=== PATIENT | female | born 1990 | race Caucasian/White ===

== ENCOUNTER 2023-11-15 11:11 | Emergency (ER) | payer OTHER, SELFPAY ==
[2023-11-15] VITALS (10 sets, daily range): BP systolic 92–127; BP diastolic 49–74; PULSE 56–77; RESP 12–19; TEMP 36.6–36.7; O2SAT 99–100
--- NOTE | ~2023-11-15 | XR_ITS ---
XR hip LT min 2V 11/15/2023 11:52 INDICATION: Left hip pain PROCEDURE: 2 views left hip COMPARISON: No prior studies for comparison. FINDINGS: Fracture, dislocation or subluxation is not identified. There is anatomic alignment. The so ft tissues appear within normal limits. No foreign bodies are identified. IMPRESSION: 1: NO ACUTE BONE OR JOINT ABNORMALITY IDENTIFIED. Reviewed, dictated and finalized at location B.
--- NOTE | 2023-11-15 11:26 | ED.NAVMDI ---
HPI - Nausea/Vomiting/Diarrhea General Chief complaint: Nausea/Vomiting/Diarrhea Stated complaint: n/v Time Seen by Provider: 11/15/23 11:14 History of Present Illness HPI Narrative: patient with history of anxiety and depression has been feeling anxious when she does she gets nausea and vomiting and cannot eat, for last day she has not had anything in starting last night she has been throwing up but cannot keep anything down. She does have some lower pelvic pain return left side with left hip pain, denies any recent injury. Related Data Allergies Allergy/AdvReac Type Severity Reaction Status Date / Time No Known Allergies Allergy Verified 11/15/23 11:21 Review of Systems Review of Systems: All systems reviewed & are unremarkable except as noted in HPI and below Exam Narrative: EXAMINATION OF ORGAN SYSTEMS/BODY AREAS: Constitutional: Vital signs per nursing GENERAL:[No acute distress, non-toxic appearing.] HEAD: Normal with no signs of head trauma. EYES: EOMI, conjunctiva normal ENT: Hearing grossly intact LUNGS: Nonlabored breathing. HEART: [Regular rate and rhythm] ABD: [Soft], [nontender to palpation] EXT: Normal range of motion SKIN: [No rashes or lesions.] NEURO: [Alert and oriented x 3. No gross focal sensory or strength deficits.] PSYCH: Normal affect Course Vital Signs Vital signs: Vital Signs Temperature 98.0 F 11/15/23 11:16 Pulse Rate 75 11/15/23 11:16 Respiratory Rate 17 11/15/23 11:16 Blood Pressure 127/74 11/15/23 11:16 Pulse Oximetry 100 11/15/23 11:16 Oxygen Delivery Room Air 11/15/23 11:16 Temperature 98.0 F 11/15/23 11:16 Pulse Rate 62 11/15/23 12:02 Respiratory Rate 16 11/15/23 12:02 Blood Pressure 92/49 L 11/15/23 12:01 Pulse Oximetry 99 11/15/23 12:02 Oxygen Delivery Room Air 11/15/23 11:16 MDM - Nausea/Vomiting/Diarrhea MDM Narrative Medical decision making narrative: Patient presenting with nausea and vomiting she has associates with her anxiety, her abdomen is soft nontender, he is ambulating normal steady gait, she is complaining of left hip pain slight did get an x-ray which is normal. Given the component of anxiety I did opt for Compazine and Benadryl for nausea, patient request IV fluids this is ordered. On re-evaluation she states she is feeling much better, urinalysis consistent with some dehydration but otherwise unremarkable, no longer nauseous, agreeable to outpatient management with return precautions. Lab Data Labs: Lab Results 11/15/23 Range/Units 11:58 Urine Color Yellow (Yellow) Urine Appearance Clear (Clear) Urine pH 5.5 (5.0-9.0) Ur Specific [place] 1.020 (1.001-1.035) Urine Protein Negative (Negative) mg/dL Urine Glucose (UA) Negative (Negative) mg/dL Urine Ketones 1+ H (Negative) mg/dL Ur Blood (Man) Negative (Negative) Urine Nitrate Negative (Negative) Urine Bilirubin Negative (Negative) Urine Urobilinogen 1.0 (<2.0) mg/dL Leukocyte Esterase Rfl Trace H (Negative) TINA/UL Urine RBC 0-2 (0-2) /hpf Urine WBC 6-10 H (0-3) /hpf Ur Squamous Epith Cells Occasional (Few) /hpf Urine Bacteria None seen /hpf Urine Casts 0-2 UCG Bedside Result Negative Reference Range: Negative Discharge Plan Discharge Clinical Impression: Nausea Patient Disposition: Home, Self-Care Condition: Stable Instructions: Antibiotic Form, Acute Nausea and Vomiting (ED) Additional Instructions: Please follow up with your doctor; you can always return for any further issues. If you don't have a primary care doctor, information is provided below. Prescriptions: New ibuprofen 600 mg tablet 600 mg PO TID PRN (Reason: fever or pain) Qty: 30 0RF ondansetron 4 mg tablet,disintegrating 4 mg PO Q8H PRN (Reason: nausea and vomiting) Qty: 10 0RF Follow-up/Referrals: Kusum Morales
[2023-11-15] MEDS: PROCHLORPERAZINE EDISYLATE 10 MG/2 ML VIAL IV PUSH (11:36)
[2023-11-15] MEDS: diphenhydrAMINE HCl INJ 50 MG/ML VIAL 25 MG IV PUSH (11:36)
[2023-11-15] MEDS: LACTATED RINGERS 1,000 ML 999 ML IV CONT (11:37)
[2023-11-15 12:09] LABS: Appearance Urine Clear (Clear); Bacteria Urine None Seen /hpf; Bilirubin Urine Negative (Negative); Blood Urine Negative (Negative); Color Urine Yellow (Yellow); Glucose Urine UA Negative (Negative); Ketones Urine 1+ mg/dL (Negative); Leukocyte Esterase Ur Trace LEU/UL (Negative); Nitrate Urine Negative (Negative); Non Pathogenic Casts 0-2; Protein Urine Negative (Negative); RBC Urine 0-2 /hpf (0-2); Squamous Epithelial Cell Urine Occasional /hpf (Few); pH Urine 5.5 (5.0-9.0)
[2023-11-15 12:28] LABS: Add Urine Microscopic? YES
== END 2023-11-15 13:13 | disposition home or self-care (01) ==
PROVIDERS: Emergency Provider Emergency Medicine
DX: R11.0 Nausea (principal); F41.9 Anxiety disorder, unspecified; F32.A Depression, unspecified; R82.998 Other abnormal findings in urine
CPT/HCPCS: 73502; 81001; 81025; 87086; 87088; 96361; 96374; 96375; 99284; J0780; J1200; J7120

== ENCOUNTER 2025-02-17 01:50 | Day surgery (SDC) | payer OTHER, SELFPAY ==
--- OUTSIDE RECORDS SUMMARY | 2012-05-27 06:00 | XMS_ITS | Continuity of Care Document ---
Author Organization [facility] Address [address] [place] [address] Phone Care Team Providers Care Vegetable Specker Name Role Phone Celia Harris NP Unavailable Unavailable Results Test Name Date and Time Measure Units Reference Range Abnormal Flag Status Comments Panel Description: STREPTOCOCCUS, GROUP A CULTUR E Final SOURCE: 07:21:00 THROAT Final STATUS: 07:21:00 FINAL Final RESULT: 07:21:00 SEE NOTE Final No beta hemoly tic Streptococci isolatedTest performed at [facility] [address] [id number] r: BARBIE WOOD DO P Advance Directives Directive Yes / No Effective Date File Name No Information Encounters Encounter Description Practice Location Reason(s) For Visit Diagnoses Date Provider Providers Copied on Encounter [facility], [address], [place], [place], [address] , tel: [phone] [facility] Acute tonsillitisTobacco use disorder 2 Steven Yang. [address], [place], [place], [id number]. tel:[phone] [facility], [address], [place], [place], [address] , [place] tel: [phone] [facility] Diffuse cystic mastopathyAcute lower urinary tract infectionAnnual physical exam 2 No Information [facility], [address], [place], [place], [address] , [place] tel: [phone] [facility] Routine gynecological examination Sep-0 1 Dario Harmon. [address], [address], [place], [place], [address], . tel:[phone] Family History Family Member Type Diagnosis Age At Onset Maternal grandmother Problem (finding) malignant neoplasm of urinary bladder Payers Payer name Insurance type Covered constitution party ID Giuseppe zacarias(audi) [id number] OPEN ACCESS I II III CI [id number] Social History Type Description Quantity Date Captured Comments Alcohol Use Details No Caffeine Use Details soda and tea Tobacco Use Status No Information Smoking Status Current every day smoker 2011 Sex Female Vital Signs Date / Time: Height Weight BMI Pulse Rate Blood Pressure Temperature Respiratory Rate Body Surface Area Head Circumference Head Circ. Percentile Wt./Donnie. Percentile BMI percentile Pulse Ox Inhaled Ox 10:52 AM 66.00 in 119.20 lbs 19.2 4 kg/m eter (2) 84 /min 110/58 mm[Hg] 99.00 F 16 /min Chief Complaint And Reason For Visit No Information Reason For Referral Reason For Referral No Information History Of Present Illness Encounter Date Complaint History Of Prese nt Illness No Information Functional Status Date Functional Assessmen t No Information Instructions Date Instruction Additional Infor mation No Information Assessments Type Assessment Date No Information Patient Care Teams Name Effective Dates (start - stop) Status Members No Information
[2025-02-07 18:34] VITALS: BMI 20.5
--- NOTE | 2025-02-07 18:48 | PC.NURSE ---
Report to the Outpatient Waiting Room, entrance under the green pavilion located off [facility], at time _0600_ on date __02/17/25_. Planned Procedure Time: __07_.? Time changes happen often and if your time is changed the preop area will call you the afternoon before. - You and your visitor will be asked to self-screen and do not enter if you have any COVID symptoms. Please call surgeon if you need to reschedule. - A mask is optional within the hospital at this time. Patients may have clear liquids (water, carbonated beverages, clear teas, apple juice) until 3 hours prior to surgery with a maximum of 20 ounces. - No food from midnight until time of surgery and no smoking, or chewing tobacco (or any form of nicotine). No chewing gum, candy or mints. Take only the following medications with a SIP of water on the morning of surgery: _lorazepam, fluoxetine__ DO NOT STOP ANY OF YOUR OTHER PRESCRIPTION MEDICATIONS PRIOR TO SURGERY EXCEPT THE FOLLOWING Hold all vitamins and supplements for 3 days per anesthesiologist. Please no make-up, nail cypriot, hairspray, perfume, deodorant, or body powder the day of surgery.? No jewelry (including any body piercings) or valuables the day of surgery, leave them at home.? Please take a shower or bath the night before, or the morning of, surgery with an antibacterial soap.? Wear comfortable, loose fitting clothing.? - Jewelry must be removed prior to entering the operating room.? Rings and piercings that are not removed may be cut off. - The hospital will not accept responsibility for valuables.? - Please leave all valuables, including medications, at home the day of surgery. If you are going home after surgery, a licensed solo truck driver must drive you home.? - NO public transportation without another adult if you receive anesthesia. - We recommend that an adult stay with you for 24 hours following discharge. - We also recommend that you do not drive, make important decision, drink alcoholic beverages, or take any drugs that were not prescribed by your health care provider for at least 24 hours after your discharge time. Follow any additional instructions given to you from your surgeon. Telephone instructions given to _Kennedy_and asked if any additional questions and then verbalized understanding. Patient advised to call surgeon office or pre surgery nurse liaison [phone] if any additional questions.
--- NOTE | 2025-02-15 12:49 | PM.IMHP ---
H&P: HPI History of Present Illness Date/Time: 02/15/25 12:49 Chief Complaint: Desires sterilization Narrative: 35-year-old female admitted for laparoscopic bilateral salpingectomy secondary to the desire for permanent sterilization alternatives including plus pills plan chills, injections large leuks etc. were reviewed. She understands this to be permanent and irreversible with risks and benefits reviewed in great detail. She had all questions answered asked to proceed Review of Systems Review of Systems: All systems reviewed & are unremarkable except as noted in HPI and below PMFSH Social History Social History Smoking packs per day: 0.5 Smoking cigarettes per day: 10.0 Years smoked: 15 Smoking pack-years: 7.50 Smoking status: Current every day smoker Tobacco type: cigarettes and e-cigarettes/vaping Substance use: never Substance use type: does not use Living arrangements: with family Spiritual care concerns: No Meds Home Medications and Allergies Home Medications ?Medication ?Instructions ?Recorded ?Confirmed ?Type ondansetron 4 mg disintegrating 4 mg PO Q8H PRN nausea and 11/15/23 02/07/25 Rx tablet vomiting #10 tabs fluoxetine 40 mg capsule 40 mg PO DAILY 02/07/25 02/07/25 History lorazepam 0.5 mg tablet 0.5 mg PO BID PRN anxiety 02/07/25 02/07/25 History nicotine 21 mg/24 hr daily 1 patch transdermal PRN PRN 02/07/25 02/07/25 History transdermal patch smoking cessation Allergies Allergy/AdvReac Type Severity Reaction Status Date / Time No Known Allergies Allergy Verified 02/07/25 18:30 Exam Const: General: cooperative, healthy appearing, comfortable and well groomed Nutritional Appearance: average body habitus Orientation/consciousness: oriented to person, oriented to place and oriented to time HENMT: Head: normal to inspection Resp: Effort & Inspection: normal respiratory effort Cardio: Rate: regular rate Rhythm: regular rhythm Heart sounds: S1 normal heart sound present and S2 normal heart sound present GI: Inspection: normal to inspection : External Female Exam: normal external appearance Speculum Exam - Vagina: normal appearance of the vagina Speculum Exam - Cervix: normal appearance of the cervix Bimanual exam- vagina & uterus: soft Bimanual Exam- Adnexa, other: normal adnexae Assessment and Plan Assessment and plan (1) Sterilization: Code(s): Z30.2 - Encounter for sterilization Status: Acute Plan Proceed with laparoscopic salpingectomy
[2025-02-17] VITALS (8 sets, daily range): BP systolic 95–134; BP diastolic 55–74; PULSE 48–59; RESP 12–16; TEMP 36.4–36.9; O2SAT 16–100
--- OUTSIDE RECORDS SUMMARY | 2025-02-17 01:53 | XMS_ITS | Clinical Summary ---
Author Organization [facility] Address [address] [place] [id number] Care Team Providers Care Blueprint Developer Name Role Phone Isidro Connolly MD Primary Care Provider [phone] Allergies No known active allergies Medications escitalopram 20 MG tablet Take 1 tablet (20 mg total) by mouth daily. 07/04/2020 Active LORazepam (ATIVAN) 1 MG tablet Take 0.5 tablets (0.5 mg total) by mouth every 6 (six) hours as needed for Anxiety. Active vitamin ( PLUS) 27-1 MG tablet Take 1 tablet by mouth daily. Active famotidine (PEPCID) 40 MG tablet Take 1 tablet (40 mg total) by mouth 2 (two) times daily. 11/24/2024 Active nicotine (NICODERM CQ) 21 MG/24HR Place 1 patch (21 mg total) onto the skin daily. 60 patch 2 12/23/2024 Active Active Problems Problem Noted Date Diagnosed Date Normal labor (HHS/HCC) 12/21/2024 Leukopenia 10/02/2020 Iron deficiency 08/07/2020 Vitamin B12 deficiency disease 08/07/2020 Depression Encounters Date Type Department Care Team Description 01/17/2025 Telephone [facility] [address] [place] [address] Isidro Connolly MD Post (); Post Call 12/26/2024 8:22 PM CDT - 12/26/2024 11:24 PM CDT Emergency [facility] [address] [place] [address] Evelyn Lincoln MD Hypertension Follow Up Discharge Disposition: Home or Self Care (Routine Discharge) 12/26/2024 Travel 12/25/2024 3:00 PM CDT - 12/25/2024 11:59 PM CDT Hospital Encounter [facility] [address] [place] [address] Isidro Connolly MD Discharge Disposition: Home or Self Care (Routine Discharge) 12/25/2024 Telephone [facility] [address] [place] [address] Isidro Connolly MD Post Call 12/25/2024 Travel 12/21/2024 6:08 AM CDT - 12/23/2024 9:23 AM CDT Hospital Encounter [facility] [address] [place] [address] Isidro Connolly MD Contractions Discharge Disposition: Home or Self Care (Routine Discharge) 12/21/2024 Travel from Last 3 Months Immunizations Immunization Administration Dates Next Due Tdap (Boostrix) 02/10/2022 Family History Medical History Relation Comments No Known Problems Brother No Known Problems Father Cancer Maternal Grandmother No Known Problems Mother No Known Problems Sister Aneurysm Neg Hx Arthritis Neg Hx Asthma Neg Hx COPD Neg Hx Depression Neg Hx Diabetes Neg Hx Early Neg Hx Emphysema Neg Hx Heart Disease Neg Hx Hyperlipidemia Neg Hx Hypertension Neg Hx Kidney Disease Neg Hx Mental Health Neg Hx Migraines Neg Hx Osteoarthritis Neg Hx Rheumatoid Arthritis Neg Hx Stroke Neg Hx Thyroid Disease Neg Hx Relation Status Comments Brother Alive Father Alive Maternal Grandmother Mother Alive Sister Alive Social History Tobacco Use Types Packs/Day Years Used Date Smoking Tobacco: Every Day Cigarettes Smokeless Tobacco: Never Tobacco Cessation:Ready to Q uit: Not Asked; Counseling Given: Not Answered Alcohol Use Standard Drinks/Week Comments No 0 (1 standard drink = 0.6 oz pur e alcohol) B1300 Health Literacy Answer Date Recor ded How often do you need to hav e someone help you when you read instructions, pamphlets, or other written material from your doctor or pharmacy? Never 12/22/2024 [facility] Utilities Answer Date Recorded In the past 12 months has e [employer], gas, oil, or water [employer] threatened to shut off services in your home? No 12/22/2024 Humiliation, Afraid, Rape, and Kick questionnair e Answer Date Recorded Within the last year, have y ou been afraid of your partner or ex-partner? No 12/22/2024 Within the last year, have y ou been humiliated or emotionally abused in other ways by your partner or ex-partner? No Within the last year, have y ou been kicked, hit, slapped, or otherwise physically hurt by your partner or ex-partner? No 12/22/2024 Within the last year, have y ou been raped or forced to have any kind of sexual activity by your partner or ex-partner? No 12/22/2024 Social Connection and Isolat ion Panel [NHANES] Answer Date Recorded In a typical week, how many times do you talk on the phone with family, friends, or neighbors? More than three times a week 12/22/2024 How often do you get togethe r with friends or relatives? More than three times a week 12/22/2024 How often do you attend chur or oriental orthodox services? Never 12/22/2024 Do you belong to any clubs o r organizations such as catholic groups, unions, fraternal or athletic groups, or school groups? No 12/22/2024 How often do you attend meet ings of the clubs or organizations you belong to? Never 12/22/2024 Are you , , di vorced, , never , or living with a partner? 12/22/2024 AUDIT-C Answer Date Recorded Q1: How often do you have a drink containing alcohol? Never 12/22/2024 Q2: How many drinks containi ng alcohol do you have on a typical day when you are drinking? Patient does not drink Q3: How often do you have si x or more drinks on one occasion? Never 12/22/2024 Overall Financial Resource Strain (CARDIA) Answe r Date Recorded How hard is it for you to pa y for the very basics like food, housing, medical care, and heating? Not hard at all 12/22/2024 [facility] [employer] of Occupat ional Health - Occupational Stress Questionnaire Answer Date Recorded Do you feel stress - tense, restless, nervous, or anxious, or unable to sleep at night because your mind is troubled all the time - these days? To some extent 12/22/2024 Exercise Vital Sign Answer Date Recorde d On average, how many days pe r week do you engage in moderate to strenuous exercise (like a brisk walk)? 1 day 12/22/2024 On average, how many minutes do you engage in exercise at this level? 10 min 12/22/2024 Hunger Vital Sign Answer Date Recorded Within the past 12 months, y ou worried that your food would run out before you got the money to buy more. Never true 12/23/19 25 Within the past 12 months, t he food you bought just didn't last and you didn't have money to get more. Never true 12/22/2024 PRAPARE - Transportation Answer Date Re corded In the past 12 months, has l ack of transportation kept you from medical appointments or from getting medications? No 12/13 In the past 12 months, has l ack of transportation kept you from meetings, work, or from getting things needed for daily living? No 12/22/2024 Housing Stability Vital Sign Answer Jones e Recorded In the last 12 months, was t here a time when you were not able to pay the mortgage or rent on time? No 12/22/2024 In the past 12 months, how m any times have you moved where you were living? 1 12/22/2024 At any time in the past 12 m [facility], were you homeless or living in a long-term (including now)? No 12/22/2024 Depression Answer Date Recor ded Last EPDS Total Score 8 12/22/2024 Last EPDS Self Harm Result Unrecognized value Comments No Sex and Gender Information Value Date Recorded Sex Assigned at Female 09/14/2024 6:54 PM CDT Legal Sex Female 11:08 PM [employer] Gender Identity Not on file Sexual Orientation Not on file Last Filed Vital Signs Vital Sign Reading Time Taken Comments Blood Pressure 142/80 12/26/2024 11:20 PM CDT Pulse 48 12/26/2024 8:26 PM CDT Temperature 37.5 C (99.5 F) 12/26/2024 8:29 PM CDT Respiratory Rate 16 12/26/2024 8:26 PM CDT Oxygen Saturation 99% 12/26/2024 11:20 PM CDT Inhaled Oxygen Concentration - - Weight 63.6 kg (140 lb 3.2 oz) 12/26/2024 8:26 P M CDT Height 167.6 cm (5' 6) 12/26/2024 8:26 PM CDT Body Mass Index 22.63 12/26/2024 8:26 PM CDT Plan of Treatment Health Maintenance Due Date Last Done Comments Cervical Cancer Screening Pap Smear (Age 30 to 64) Every 3 Years 1991 Annual Physical 1994 Pneumococcal Vaccine: Pediatrics (0 to 5 Years) and At-Risk Patients (6 to 49 Years) (1 of 2 - PCV) 2010 Hepatitis B Vaccines (3 of 3 - 19+ 3-dose series) 02/16/2013 09/17/2012, 09/17/2012, 08/16/2012 HPV Vaccines (1 - 3-dose SCDM series) 2018 Cervical Cancer Screening Pap with HPV Testing (Age 30 to 64) Every 5 Years 2021 Cervical Cancer Screening with HPV 2021 COVID-19 Vaccine ( - season) 2025 10/24/2021, 07/25/2021 DTaP, Tdap and Td Vaccines (9 - Td or Tdap) 02/11/2032 02/10/2022, 12/13/2014, 09/16/2012, Additional history exists Meningococcal Vaccine Aged Out 09/16/2012, 013 No longer eligible based on patient's age to complete this topic Hepatitis C Completed 08/07/2020 Meningococcal B Vaccine Aged Out No l onger eligible based on patient's age to complete this topic RSV Immunizations Under 20 Months Aged Out No longer eligible based on patient's age to complete this topic Procedures Procedure Name Priority Date/Time Associated Diagnosis Comments XR CHEST PORTABLE STAT 12/26/2024 8:5 3 PM CDT HC URINALYSIS AUTO W/MICRO STAT 12/26/2024 8:41 PM CDT HC CREATININE OTH SOURCE STAT 12/26/2024 8:41 PM CDT ECG 12-LEAD STAT 12/26/2024 8:38 PM CDT TROPONIN, QUANT STAT 12/26/2024 8:30 PM CDT LDH, LACTATE DEHYDROGENASE STAT 12/26/2024 8:30 PM CDT COMPREHENSIVE METABOLIC PANEL STAT 12/26/2024 8:30 PM CDT CBC W/DIFF AUTOMATED STAT 12/26/2024 8:30 PM CDT ECG 12-LEAD Routine 12/22/2024 7:31 AM CDT CBC W/DIFF AUTOMATED Routine 12/22/2024 5:10 AM CDT ORDER RHOGAM Routine 12/21/2024 10:26 AM CDT DRUG SCREEN RAPID STAT 12/21/2024 9:1 5 AM CDT Uterine contractions (HHS/HCC) HC URINALYSIS AUTO W/MICRO STAT 12/21/2024 9:15 AM CDT Uterine contractions (HHS/HCC) RHOGAM CANDIDACY Routine 12/21/2024 6:36 AM CDT TYPE & SCREEN Routine 12/21/2024 6:36 AM CDT CBC W/DIFF AUTOMATED STAT 12/21/2024 6:36 AM CDT Uterine contractions (HHS/HCC) HEPATITIS C ANTIBODY Routine 08/07/2020 2:45 PM [employer] Neutropenia Anemia Vitamin B12 deficiency disease Iron deficiency Weight loss, unintentional from Last 3 Months or Most Recently Relevant to Health Maintenance Results * XR CHEST PORTABLE (12/26/2024 8:53 PM CDT) Anatomical Region Laterality Modality Chest Radiographic Zo ging 12/26/2024 9:31 PM CDT Impressions 12/26/2024 9:32 PM CDT IMPRESSION: 1. No acute cardiopulmonary findings. Referred By: Interpreted By: Corey Baldwin MD, 12/26/2024 9:31 PM Narrative 12/26/2024 9:32 PM [address]T [address] [place] [address] Examination: Chest x-ray 1 view Exam Date/Time: 12/26/2024 8:53 PM REASON FOR EXAM: 34 years-old Female with chest pain Comparison: Chest x-ray 11/06/2021 Technique: Single AP view of the chest was obtained. Findings: Heart size is within normal limits. Lungs are clear. There is no pleural effusion or pneumothorax. No acute osseous lesions are seen. Procedure Note Corey Baldwin MD - 12/26/[address] [place] [address] Examination: Chest x-ray 1 view Exam Date/Time: 12/26/2024 8:53 PM REASON FOR EXAM: 34 years-old Female with chest pain Comparison: Chest x-ray 11/06/2021 Technique: Single AP view of the chest was obtained. Findings: Heart size is within normal limits. Lungs are clear. There is no pleural effusion or pneumothorax. No acute osseous lesions are seen. IMPRESSION: 1. No acute cardiopulmonary findings. Referred By: Interpreted By: Corey Baldwin MD, 12/26/2024 9:31 PM us Evelyn Lincoln MD GENERAL IMAGING Final Resul t * PROTEIN CREAT RATIO URINE (12/26/2024 8:41 PM CDT) PROTEIN URINE TOTAL RANDOM <6.0 <11.9 MG/DL 12/26/2024 10:45 PM CDT [facility] CREATININE RANDOM (U) 36.1 MG/DL 12/26/2024 10:45 PM CDT [facility] Comment:REFERENCE RANGE NOT ESTABLISHED PROTEIN/CREATIN INE RATIO UNABLE TO CALCULATE 12/26/2024 10:45 PM CDT [facility] Comment:CALCULATED VALUE. [facility] REFERENCE RANGE HAS NOT BEEN ESTABLISHED. URINE SPECIMEN / Unknown 12/26/2024 8:41 PM CDT us Evelyn Lincoln MD URINE ORDERABLES Final Resu lt [facility] [address] [place] [address], * (ABNORMAL) URINALYSIS (12/26/2024 8:41 PM CDT) Only the most recent of2 resultswithin the time period is included. COLOR (U) YELLOW 12/26/2024 9:18 PM CDT [facility] TRANSPARENCY CLEAR 12/26/2024 9:18 PM CDT [facility] SPECIFIC GRAVITY (U) 1.010 1.000 - 1.025 12/26/2024 9:18 PM CDT [facility] U PH 6.5 5.0 - 8.0 12/26/2024 9:18 PM CDT [facility] LEUKOCYTES (U) 1+(A) NEGATIVE 12/26/2024 9:18 PM CDT [facility] NITRITES NEGATIVE NEGATIVE 12/26/2024 9:18 PM CDT [facility] PROTEIN RANDOM (U) NEGATIVE NEGATIVE 12/26/2024 9:18 PM CDT [facility] GLUCOSE (U) NEGATIVE NEGATIVE 12/26/2024 9:18 PM CDT [facility] KETONES MG/DL (U) NEGATIVE NEGATIVE 12/26/2024 9:18 PM CDT [facility] UROBILINOGEN 0.2 <1.0 EU/DL 12/26/2024 9:18 PM CDT [facility] BILIRUBIN (U) NEGATIVE NEGATIVE 12/26/2024 9:18 PM CDT [facility] BLOOD (U) 2+(A) NEGATIVE 12/26/2024 9:18 PM CDT [facility] WBC/HPF 5-10(A) 0 - 5 /HPF 12/26/2024 9:18 PM CDT [facility] RBC/HPF 5-10(A) 0 - 5 /HPF 12/26/2024 9:18 PM CDT [facility] EPI/LPF OCCASIONAL /LPF 12/26/2024 9:18 PM CDT [facility] BACTERIA (U) 1+ /HPF 12/26/2024 9:18 PM CDT [facility] MUCUS PRESENT 12/26/2024 9:18 PM CDT [facility] URINE SPECIMEN OBTAINED BY CLEAN CATCH PROCEDURE / Unknown 12/26/2024 8:41 PM CDT us Evelyn Lincoln MD URINE ORDERABLES Final Resu lt [facility] [address] [place] [address], * ECG 12 lead (12/26/2024 8:38 PM CDT) Only the most recent of2 resultswithin the time period is included. 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1990 Requested By: EVELYN LINCOLN Order Number: [id number] Reading MD: Chadwick Galeas Measurements [address] Rate: 43 P: 49 FL: 167 QRS: 45 QRSD: 91 T: 40 QT: 416 QTc: 353 Interpretive Statements SINUS BRADYCARDIA POSSIBLE LEFT ATRIAL ENLARGEMENT LOW QRS VOLTAGE IN PRECORDIAL LEADS us Evelyn Lincoln MD ECG ORDERABLES Final Resul t [facility] * (ABNORMAL) COMPREHENSIVE METABOLIC PANEL (12/26/2024 8:30 PM CDT) SODIUM S/P/B 140 136 - 145 MMOL/L 12/26/2024 9:13 PM CDT [facility] POTASSIUM S/P/B 3.4(L) 3.5 - 5.1 MMOL/L 12/26/2024 9:13 PM CDT [facility] CHLORIDE S/P/B 105 98 - 107 MMOL/L 12/26/2024 9:13 PM CDT [facility] CO2 22.7 21.0 - 32.0 MMOL/L 12/26/2024 9:13 PM CDT [facility] GLUCOSE 94 70 - 99 MG/DL 12/26/2024 9:13 PM CDT [facility] Comment: FASTING GLUCOSE 100 TO 125 MG/DL IS CONSISTENT WITH IMPAIRED FASTING GLUCOSE. FASTING GLUCOSE >125 MG/DL IS CONSISTENT WITH DIABETES. RANDOM GLUCOSE >200 MG/DL WITH HYPERGLYCEMIC SYMPTOMS IS CONSISTENT WITH DIABETES. PER ADA GUIDELINES BUN 6 6 - 24 MG/DL 12/26/2024 9:13 PM T [facility] CREATININE S/P/B 0.58 0.55 - 1.02 MG/DL 12/26/2024 9:13 PM [facility] CALCIUM S/P/B 9.0 8.4 - 10.5 MG/DL 12/26/2024 9:13 PM [facility] BILIRUBIN TOTAL S/P/B 0.2 0.2 - 1.0 MG/DL 12/26/2024 9:13 PM [facility] Comment: THIS ASSAY IS NOT RECOMMENDED FOR PATIENTS UNDERGOING TREATMENT WITH ELTROMBOPAG DUE TO THE POTENTIAL FOR FALSELY ELEVATED RESULTS. ALKALINE PHOSPHATASE S/P/B 112(H) 37 - 98 U/L 12/26/2024 9:13 PM [facility] AST 17 15 - 37 U/L 12/26/2024 9:13 PM [facility] ALT 24 14 - 59 U/L 12/26/2024 9:13 PM [facility] TOTAL PROTEIN S/P/B 6.4 6.4 - 8.2 G/DL 12/26/2024 9:13 PM [facility] ALBUMIN S/P/B 2.7(L) 3.4 - 5.0 G/DL 12/26/2024 9:13 PM [facility] ANION GAP 12.3 5.0 - 15.0 MMOL/L 12/26/2024 9:13 PM [facility] OSMOLALITY (CALC) 287 MOSM/KG 025 9:13 PM [facility] Comment:REFERENCE RANGE NOT ESTABLISHED GFR ESTIMATE >90 >89 ML/MIN/1. 73 M2 12/26/2024 9:13 PM [facility] GFR NOTES GFR REFERENCE S: 12/26/2024 9:13 PM [facility] Comment: THE ESTIMATED GFR IS CALCULATED USING THE 2020 CKD-EPI EQUATION. THE FOLLOWING CATEGORIES FOR GRADING RENAL FUNCTION ARE RECOMMENDED BY THE INTERNATIONAL SOCIETY OF NEPHROLOGY (KDIGO 2012 CLINICAL PRACTICE GUIDELINE). G1,NORMAL OR HIGH: >89 ml/min/1.73 m2 G2,MILDLY DECREASED: 60-89 ml/min/1.73 m2 G3A,MILDLY TO MODERATELY DECREASED: 45-59 ml/min/1.73 m2 G3B,MODERATELY TO SEVERELY DECREASED: 30-44 ml/min/1.73 m2 G4,SEVERELY DECREASED: 15-29 ml/min/1.73 m2 G5,KIDNEY FAILURE: <15 ml/min/1.73 m2 12/26/2024 8:30 PM CDT us Evelyn Lincoln MD LABORATORY Final Resul t Performing Organization Address City/[facility]/ZIP Co de Phone Number [facility] [address] [place] [address], * LDH, LACTATE DEHYDROGENASE (12/26/2024 8:30 PM CDT) LDH 187 81 - 234 UNITS/L 12/26/2024 9:13 PM CDT [facility] 12/26/2024 8:30 PM CDT us Evelyn Lincoln MD LABORATORY Final Resul t Performing Organization Address [facility] Co de Phone Number [facility] [address] [place] [address], [place] [phone] * (ABNORMAL) CBC W/DIFF AUTOMATED (12/26/2024 8:30 PM CDT) Only the most recent of3 resultswithin the time period is included. WBC 7.81 4.00 - 10.80 x10'3/uL 12/26/2024 10:22 PM CDT [facility] RBC 3.75(L) 4.10 - 5.40 x10'6/uL 12/26/2024 10:22 PM CDT [facility] HGB 9.5(L) 12.0 - 16.0 G/DL 12/26/2024 10:22 PM CDT [facility] HCT 30.2(L) 36.0 - 47.0 % 12/26/2024 10:22 PM CDT [facility] MCV 80.5 78.0 - 100.0 FL 12/26/2024 10:22 PM CDT [facility] MCH 25.3(L) 27.0 - 31.0 PG 12/26/2024 10:22 PM CDT [facility] MCHC 31.5(L) 33.0 - 36.0 G/DL 12/26/2024 10:22 PM CDT [facility] RDW 13.7 11.5 - 14.5 % 12/26/2024 10:22 PM CDT [facility] PLT 316 150 - 350 x10'3/uL 12/26/2024 10:22 PM CDT [facility] MPV 10.1 7.4 - 10.4 FL 12/26/2024 10:22 PM CDT [facility] CBC COMMENT NORMAL REFERENCE RANGE NOT ESTABLISHED FOR THE PROPORTIONAL LEUKOCYTE DIFFERENTIAL. 12/26/2024 10:22 PM CDT [facility] NEUTROPHILS % 61.5 % 12/26/2024 10:22 PM CDT [facility] LYMPHOCYTES % 28.0 % 12/26/2024 10:22 PM CDT [facility] MONOCYTES % 8.2 % 12/26/2024 10:22 PM CDT [facility] EOSINOPHILS % 1.4 % 12/26/2024 10:22 PM CDT [facility] BASOPHILS % 0.5 % 12/26/2024 10:22 PM CDT [facility] IMMATURE GRANS % 0.4 % 12/27/19 10:22 PM CDT [facility] NRBC % 0.0 % 12/26/2024 10:22 PM CDT [facility] ABS. NEUTROPHILS 4.80 1.60 - 8.30 x10'3/uL 12/26/2024 10:22 PM CDT [facility] ABS. LYMPHOCYTES 2.19 0.80 - 4.70 x10'3/uL 12/26/2024 10:22 PM CDT [facility] ABS. MONOCYTES 0.64 0.00 - 1.50 x10'3/uL 12/26/2024 10:22 PM CDT [facility] ABS. EOSINOPHILS 0.11 0.00 - 0.40 x10'3/uL 12/26/2024 10:22 PM CDT [facility] ABS. BASOPHILS 0.04 0.00 - 0.20 x10'3/uL 12/26/2024 10:22 PM CDT [facility] ABS. IMMATURE GRANULOCYTES 0.03 0.00 - 0.03 x10'3/uL 12/26/2024 10:22 PM CDT [facility] ABS. NUCLEATED RBC'S 0.00 0.00 - 0.01 x10'3/uL 12/26/2024 10:22 PM CDT [facility] 12/26/2024 8:30 PM CDT us Evelyn Lincoln MD LABORATORY Final Resul t Performing Organization Address [facility]/[place] [address], * TROPONIN, QUANT (12/26/2024 8:30 PM CDT) Pathologist [facility] TROPONIN I HIGH SENSITIVITY 7 0 - 51 ng/L 12/26/2024 9:13 PM CDT [facility] 12/26/2024 8:30 PM CDT us Evelyn Lincoln MD LABORATORY Final Resul t Performing Organization Address City/[facility]/ZIP Co de Phone Number [facility] [address] [place] [address], * ORDER RHOGAM (12/21/2024 10:26 AM CDT) ABO/RH AB NEGATIVE 12/21/2024 11:44 AM CDT [facility] ANTIBODY SCREEN NEGATIVE 12/21/2024 11:44 AM CDT [facility] Date of injection [id number] 12/21/2024 6:53 PM CDT [facility] WEAK D NEGATIVE 12/21/2024 11:44 AM CDT [facility] FMH ESTIMATED VOL NEGATIVE BY WEAK D SCREEN 12/21/2024 11:44 AM CDT [facility] 12/21/2024 10:2 6 AM CDT us Isidro Connolly MD BLOOD BANK PRODUCT ORDERABLES Final Result [facility] [id number] [employer] [place] [address], * DRUG SCREEN RAPID (12/21/2024 9:15 AM CDT) CANNABINOIDS SCREEN (U) NEGATIVE NEGATIVE 12/21/2024 9:41 AM CDT [facility] PHENCYCLIDINE PCP (U) NEGATIVE NEGATIVE 12/21/2024 9:41 AM CDT [facility] COCAINE METABOLITES (U) NEGATIVE NEGATIVE 12/21/2024 9:41 AM CDT [facility] METHAMPHETAMINE SCREEN (U) NEGATIVE NEGATIVE 12/21/2024 9:41 AM CDT [facility] OPIATE SCREEN (U) NEGATIVE NEGATIVE 025 9:41 AM CDT [facility] AMPHETAMINE SCREEN (U) NEGATIVE NEGATIVE 12/21/2024 9:41 AM CDT [facility] BENZODIAZEPINES SCREEN (U) NEGATIVE NEGATIVE 12/21/2024 9:41 AM CDT [facility] TRICYCLIC ANTIDEPRESSANT SCREEN (U) NEGATIVE NEGATIVE 12/21/2024 9:41 AM CDT [facility] METHADONE (U) NEGATIVE NEGATIVE 12/21/2024 9:41 AM CDT [facility] BARBITURATES SCREEN (U) NEGATIVE NEGATIVE 12/21/2024 9:41 AM CDT [facility] OXYCODONE SCREEN (U) NEGATIVE NEGATIVE 12/21/2024 9:41 AM CDT [facility] URINE TOX COMMENT THIS TEST METHODOLOGY IS DESIGNED AND OFFERED A RAPID TURNAROUND, QUALITATIVE SCREENING PROCEDURE TO AID IN THE IMMEDIATE MEDICAL ASSESSMENT OF PATIENTS SUSPECTED OF SUBSTANCE ABUSE. 12/21/2024 9:26 AM CDT [facility] Comment: CLINICAL CONSIDERATION AND PROFESSIONAL JUDGMENT MUST BE APPLIED TO ANY DRUG OF ABUSE TEST RESULT, BOTH POSITIVE AND NEGATIVE. CONFIRMATORY QUANTITATIVE RESULTS ARE AVAILABLE THROUGH OUR [facility]. URINE SPECIMEN / Unknown 12/21/2024 9:15 AM CDT us Isidro Connolly MD URINE ORDERABLES Final Result Performing Organization Address City/[facility]/ZIP Co de Phone Number [facility] [address] [place] [address], * RHOGAM CANDIDACY (12/21/2024 6:36 AM CDT) MOM'S RHOGAM STATUS PATIENT IS A CANDIDATE FOR RHOGAM IS RH POSITIVE 12/21/2024 9:57 AM CDT [facility] 12/21/2024 6:36 AM CDT us Isidro Connolly MD BLOOD BANK TEST ORDERABLES Fin al Result Performing Organization Address [facility]/ZIP Co de Phone Number [facility] [address] [place] [address], [place] [phone] * TYPE & SCREEN (12/21/2024 6:36 AM CDT) ABO/RH AB NEGATIVE 12/21/2024 7:35 AM CDT [facility] ANTIBODY SCREEN POSITIVE 12/21/2024 7:35 AM CDT [facility] SAMPLE EXPIRATION 01/04/2025,2 359 01/04/2025 11:07 AM CDT [facility] ANTIBODY ID ANTI-D MOST LIKELY DUE TO RECENT RH IMMUNE GLOBULIN INJECTION. 01/04/2025 2:41 PM CDT [facility] 12/21/2024 6:36 AM CDT us Isidro Connolly MD BLOOD BANK TEST ORDERABLES Fin al Result [facility] [address] [place] [address], [place] [phone] * HEPATITIS C ANTIBODY (08/07/2020 2:45 PM [employer]) HEPATITIS C AB NON-REACTI VE NON-REACT ALIX 08/08/2020 7:12 PM [employer] [facility] Comment: ANTIBODIES TO HCV NOT DETECTED. DOES NOT EXCLUDE THE POSSIBILITY OF EXPOSURE TO HCV. 08/07/2020 2:45 PM [employer] Leia Ortez MD LABORATORY Final Result Performing Organization Address City/[facility] Co de Phone Number 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
--- OUTSIDE RECORDS SUMMARY | 2025-02-17 01:53 | XMS_ITS | Encounter Summary ---
Author Organization [facility] Address [address] [place] [address] Phone Care Team Providers Care Tile Edger Name Role Phone Kenneth Carranza MD Primary Care Provider [phone] Encounter Details Date Type Department Care Team (Late st Contact Info) Description 07/12/2021 [facility] [address] [place] [phone] Suzan Armstrong, POWERED BRIDGE SPECIALIST, LAY HEALTH ADVOCATE [address] [place] [address] Encounter for pre-employment examination Social History Tobacco Use Types Packs/Day Years Used Date Smoking Tobacco: Never Assessed Comments Unknown Sex and Gender Information Value Date Recorded Sex Assigned at Not on file Legal Sex Female 11:54 PM CDT Gender Identity Not on file Sexual Orientation Not on file COVID-19 Exposure Response Date Recorded In the last month, have you been in contact with someone who was confirmed or suspected to have Coronavirus / COVID-19? No / Unsure 07/12/2021 8:28 AM GEOGRAPHIC INFORMATION SYSTEM SURVEYOR documented as of this encounter Plan of Treatment Not on file documented as of this encounter Procedures Procedure Name Priority Date/Time Associated Diagnosis Comments QUANTIFERON-TB GOLD PLUS Routine 07/12/2021 8:50 AM GEOGRAPHIC INFORMATION SYSTEM SURVEYOR Encounter for pre-employment examination MMRV PANEL Routine 07/12/2021 8:50 AM GEOGRAPHIC INFORMATION SYSTEM SURVEYOR Encounter for pre-employment examination MUMPS IGG Routine 07/12/2021 8:50 AM GEOGRAPHIC INFORMATION SYSTEM SURVEYOR Encounter for pre-employment examination HERPES ZOSTER (VARICELLA) IGG Routine 07/12/2021 8:50 AM GEOGRAPHIC INFORMATION SYSTEM SURVEYOR Encounter for pre-employment examination RUBEOLA (MEASLES) IGG Routine 07/12/2021 8:50 AM GEOGRAPHIC INFORMATION SYSTEM SURVEYOR Encounter for pre-employment examination RUBELLA IMMUNITY IGG Routine 07/12/2021 8:50 AM GEOGRAPHIC INFORMATION SYSTEM SURVEYOR Encounter for pre-employment examination HEPATITIS B SURFACE ANTIBODY (HBSAB) Routine 07/12/2021 8:50 AM GEOGRAPHIC INFORMATION SYSTEM SURVEYOR Encounter for pre-employment examination documented in this encounter Results * HERPES ZOSTER (VARICELLA) IGG (07/12/2021 8:50 AM GEOGRAPHIC INFORMATION SYSTEM SURVEYOR) VARICELLA ZOSTER IGG 3.3 >=1.1 AI 07/12/2021 11:36 PM GEOGRAPHIC INFORMATION SYSTEM SURVEYOR [facility] Blood No Phlebotomy Charged / Unknown 07/12/2021 8:50 AM GEOGRAPHIC INFORMATION SYSTEM SURVEYOR 07/12/2021 12:54 PM GEOGRAPHIC INFORMATION SYSTEM SURVEYOR Narrative [facility] - 07/12/2021 11:36 PM GEOGRAPHIC INFORMATION SYSTEM SURVEYOR <= 0.8 Negative. No detectable VZV IgG antibody. 0.9 - 1.0 Equivocal >=1.1 Positive Antibody testing was performed by multiplex flow immunoassay on the [employer]ekTrak platform. us Suzan Armstrong POWERED BRIDGE SPECIALIST, LAY HEALTH ADVOCATE IMMUNOLOGY ORDERABL ES Final Result [facility] [address] [place] [address], * RUBEOLA (MEASLES) IGG (07/12/2021 8:50 AM GEOGRAPHIC INFORMATION SYSTEM SURVEYOR) MEASLES AB IGG 2.0 >=1.1 AI 07/12/2021 11:36 PM GEOGRAPHIC INFORMATION SYSTEM SURVEYOR [facility] Blood No Phlebotomy Charged / Unknown 07/12/2021 8:50 AM GEOGRAPHIC INFORMATION SYSTEM SURVEYOR 07/12/2021 12:54 PM GEOGRAPHIC INFORMATION SYSTEM SURVEYOR Narrative [facility] - 07/12/2021 11:36 PM GEOGRAPHIC INFORMATION SYSTEM SURVEYOR <= 0.8 Negative. No detectable Measles IgG antibody. 0.9 - 1.0 Equivocal >=1.1 Positive Antibody testing was performed by multiplex flow immunoassay on the BioPlex platform. us Suzan Armstrong APRN, LAY HEALTH ADVOCATE IMMUNOLOGY ORDERABL ES Final Result Performing Organization Address City/[facility] Co de Phone Number [facility] [address] [place] [address], [place] * RUBELLA IMMUNITY IGG (07/12/2021 8:50 AM GEOGRAPHIC INFORMATION SYSTEM SURVEYOR) RUBELLA IMMUNITY Immune Immune, Invalid 07/12/2021 11:36 PM GEOGRAPHIC INFORMATION SYSTEM SURVEYOR [facility] Blood No Phlebotomy Charged / Unknown 07/12/2021 8:50 AM GEOGRAPHIC INFORMATION SYSTEM SURVEYOR 07/12/2021 12:54 PM GEOGRAPHIC INFORMATION SYSTEM SURVEYOR Narrative [facility] - 07/12/2021 11:36 PM GEOGRAPHIC INFORMATION SYSTEM SURVEYOR Antibody testing was performed by multiplex flow immunoassay on the BioPlex platform. us Castrejone Abi Armstrong APRN LAY HEALTH ADVOCATE CHEMISTRY ORDERABLE S Final Result Performing Organization Address [facility] Co de Phone Number [facility] [address] [place] [address], [place] * MUMPS IGG (07/12/2021 8:50 AM GEOGRAPHIC INFORMATION SYSTEM SURVEYOR) Mumps Ab IgG 1.4 >=1.1 AI 07/12/2021 11:36 PM GEOGRAPHIC INFORMATION SYSTEM SURVEYOR [facility] Blood No Phlebotomy Charged / Unknown 07/12/2021 8:50 AM GEOGRAPHIC INFORMATION SYSTEM SURVEYOR 07/12/2021 12:54 PM GEOGRAPHIC INFORMATION SYSTEM SURVEYOR Narrative [facility] - 07/12/2021 11:36 PM GEOGRAPHIC INFORMATION SYSTEM SURVEYOR <= 0.8 Negative. No detectable Mumps IgG antibody. 0.9 - 1.0 Equivocal >=1.1 Positive Antibody testing was performed by multiplex flow immunoassay on the BioPlex platform. us Suzan L Behrends POWERED BRIDGE SPECIALIST, LAY HEALTH ADVOCATE IMMUNOLOGY ORDERABL ES Final Result [facility] [address] [place] [address], [place] * QUANTIFERON-TB GOLD PLUS (07/12/2021 8:50 AM GEOGRAPHIC INFORMATION SYSTEM SURVEYOR) NIL CONTROL 0.10 <8.01 IU/mL 07/15/2021 12:43 PM GEOGRAPHIC INFORMATION SYSTEM SURVEYOR [facility] TB ANTIGEN 1 0.20 <0.35 IU/mL 07/15/2021 12:43 PM GEOGRAPHIC INFORMATION SYSTEM SURVEYOR [facility] TB ANTIGEN 2 0.21 <0.35 IU/mL 07/15/2021 12:43 PM [facility] MITOGEN CONTROL >10.00 >0.49 IU/mL 07/15/19 12:43 PM GEOGRAPHIC INFORMATION SYSTEM SURVEYOR [facility] INTEPRETATION TB NEGATIVE NEGATIVE, NEGATIVE (TB antigen response less than 25% of internal negative control value) 07/15/2021 12:43 PM GEOGRAPHIC INFORMATION SYSTEM SURVEYOR [facility] Comment:No immune response t o Mycobacterium tuberculosis antigens was noted. M. tuberculosis infection unlikely. Blood No Phlebotomy Charged / Unknown 07/12/2021 8:50 AM GEOGRAPHIC INFORMATION SYSTEM SURVEYOR 07/12/2021 12:54 PM GEOGRAPHIC INFORMATION SYSTEM SURVEYOR Narrative [facility] - 07/15/2021 12:43 PM GEOGRAPHIC INFORMATION SYSTEM SURVEYOR A POSITIVE QUANTIFERON-TB GOLD PLUS RESULT SHOULD NOT BE THE SOLE OR DEFINITIVE BASIS FOR DETERMINING INFECTION WITH M. TUBERCULOSIS. Diagnosing or excluding tuberculosis disease, and assessing the probability of LTBI, requires a combination of epidemiological, historical, medical and diagnostic findings (e.g., acid fast bacilli (AFB) smear and culture, chest xray) that should be taken into account when interpreting QFT-Plus results. Furthermore, the magnitude of the measured gamma interferon level cannot be correlated to stage or degree of infection, level of immune responsiveness, or likelihood for progression to active disease. The Nil control adjusts for background (e.g., elevated levels of circulating gamma interferon or presence of heterophile antibodies). The Mitogen control serves as an internal positive control and verifies each specimen tested can produce a gamma interferon response. Low mitogen may occur with insufficient lymphocytes, reduced lymphocyte activity due to improper specimen handling, filling/mixing of the Mitogen tube, or inability of the patient's lymphocytes to generate gamma interferon. Infection with other Mycobacteria, including M. kansasii, M. szulgai, and M. marinum, may cause positive results. A negative QuantiFERON-TB Gold Plus result does not preclude the possibility of M. tuberculosis infection or tuberculosis disease: false negative results can be due to stage of infection (e.g., specimen obtained prior to the development of cellular immune response), co-morbid conditions which affect immune function, or other individual immunological factors. The minimum number of lymphocytes required for a reliable test result has not been established and may also be variable. The performance of the [place] format of the QuantiFERON-TB Gold Plus test has not been extensively evaluated with specimens from the following groups of individuals: 1. Individuals who have impaired or altered immune function such as those who have HIV infection or AIDS; those who have transplantation managed with immunosuppressive treatment; or others who receive immunosuppressive drugs (e.g., corticosteroids, methotrexate, azathioprine, cancer chemotherapy); and those who have other clinical conditions: diabetes, silicosis, chronic renal failure, hematological disorders (e.g., leukemia and lymphomas), and other specific malignancies (e.g., carcinoma of the head or neck and lung). 2. Individuals younger than age 17 years 3. women Suzan Armstrong POWERED BRIDGE SPECIALIST, LAY HEALTH ADVOCATE IMMUNOLOGY ORDERABL ES Final Result [facility] [address] [facility] [facility] [place] [address], * HEPATITIS B SURFACE ANTIBODY (HBSAB) (07/12/2021 8:50 AM GEOGRAPHIC INFORMATION SYSTEM SURVEYOR) HEPATITIS B SURFACE ANTIBODY 68.02 mIU/mL [facility] ARCH [id number] 07/12/2021 11:34 PM GEOGRAPHIC INFORMATION SYSTEM SURVEYOR [facility] Comment: Detected Range: >12.00 Individual is considered immune to HBV infection Blood No Phlebotomy Charged / Unknown 07/12/2021 8:50 AM GEOGRAPHIC INFORMATION SYSTEM SURVEYOR 07/12/2021 12:54 PM GEOGRAPHIC INFORMATION SYSTEM SURVEYOR Suzan Armstrong POWERED BRIDGE SPECIALIST, LAY HEALTH ADVOCATE CHEMISTRY ORDERABLE S Final Result [facility] [address] [place] [address], documented in this encounter Visit Diagnoses Diagnosis Encounter for pre-employment examination Health examination of defined subpopulation documented in this encounter Additional Health Concerns Infection Onset Date Last Indicated Resolved Time C. difficile Rule-Out 10/15/2021 10/16/20212021 2:13 AM CDT documented as of this encounter Care Teams Tile Edger Relationship Specialty Start Date End Date Kenneth Carranza MD [address] [place], [place] [phone] PCP - General Family Medicine 07/11/21 documented as of this encounter
--- OUTSIDE RECORDS SUMMARY | 2025-02-17 01:53 | XMS_ITS | Encounter Summary ---
Author Organization [facility] Address [address] [place] [address] Care Team Providers Care Business Line Manager Name Role Phone Kenneth Carranza MD Primary Care Provider [phone] Isidro Connolly MD Primary Care Provider [phone] Encounter Details Date Type Department Care Team (Late st Contact Info) Description 11/20/2018 Abstract SFL CONVERSION [address] [place] [address] , Generic Conversion, Social History Tobacco Use Types Packs/Day Years Used Date Smoking Tobacco: Never Assessed AUDIT-C Answer Date Recorded Frequency of Alcohol Consumption Never 08/21/2018 Average Number of Drinks Not on file 019 Frequency of Binge Drinking Not on file 02/2019 Comments No Sex and Gender Information Value Date Recorded Sex Assigned at Female 09/14/2024 6:54 PM CDT Legal Sex Female 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 PM 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 Gender Identity Not on file Sexual Orientation Not on file documented as of this encounter Plan of Treatment Not on file documented as of this encounter Visit Diagnoses Not on filedocumented in this encounter Additional Health Concerns Infection Onset Date Last Indicated Resolved Time MRSA 07/01/2018 07/01/2018 COVID-19 Rule Out 2020 2020 2020 2:51 PM CDT COVID-19 Rule Out 09/18/2020 09/18/2020 09/19/2020 2:32 PM CDT documented as of this encounter Care Teams Business Line Manager Relationship Specialty Start Date End Date Kenneth Carranza MD [address] [place] [phone] PCP - General FAMILY PRACTICE 07/12/18 05/08/24 [place] [address] [place] [address] [place] [phone] PCP - General FAMILY PRACTICE 05/09/24 documented as of this encounter
--- NOTE | 2025-02-17 05:22 | WPDHPUPDATE1 ---
History and Physical Update Update Date/Time: 02/17/25 05:22 History and Physical has been reviewed, including an updated exam of the patient. There are NO changes in the patient's condition. Risks, benefits, and alternatives have been discussed and questions answered. Patient agrees to proceed with procedure.
[2025-02-17] MEDS: ACETAMINOPHEN 500 MG TABLET 1000 MG PO (06:40)
[2025-02-17] MEDS: KETOROLAC 15 MG/ML VIAL (*BKC) IV PUSH (06:48)
--- NOTE | 2025-02-17 07:07 | WPDANESEPPF ---
Anes - Initial Pre Proc Eval Procedure: Operation Date: 02/17/25 07:30 Proposed Procedures p Laparoscopic Bilateral Salpingectomy - Abdifatah Egan MD Date/Time: 02/17/25 07:07 Surgeon: Abdifatah Egan MD Pre Op Diagnosis: desires sterilization Patient Data Age: 35 Gender: F Height: 1.68 m Weight: 59 kg Last Vital Signs Temp 36.9 C 02/17/25 06:27 Pulse 59 L 02/17/25 06:27 Resp 16 02/17/25 06:27 BP 113/74 02/17/25 06:27 Pulse Ox 16 L 02/17/25 06:27 O2 Del Method Room Air 02/17/25 06:27 Allergies Allergy/AdvReac Type Severity Reaction Status Date / Time No Known Allergies Allergy Verified 02/17/25 06:31 Home Medications ?Medication ?Instructions ?Recorded ?Confirmed ?Type ondansetron 4 mg disintegrating 4 mg PO Q8H PRN nausea and 11/15/23 02/07/25 Rx tablet vomiting #10 tabs fluoxetine 40 mg capsule 40 mg PO DAILY 02/07/25 02/17/25 History lorazepam 0.5 mg tablet 0.5 mg PO BID PRN anxiety 02/07/25 02/07/25 History nicotine 21 mg/24 hr daily 1 patch transdermal PRN PRN 02/07/25 02/07/25 History transdermal patch smoking cessation hydrocodone 5 mg-acetaminophen 325 1 tablet PO Q4H PRN pain #20 tabs 02/17/25 Rx mg tablet Patient hx anesthesia problems: none Family hx anesthesia problems: none Results Review: All pre-operative results and documents have been reviewed as part of the pre-operative evaluation. [facility] Social History Social History Smoking packs per day: 0.5 Smoking cigarettes per day: 10.0 Years smoked: 15 Smoking pack-years: 7.50 Smoking status: Current every day smoker Tobacco type: cigarettes and e-cigarettes/vaping Substance use: never Substance use type: does not use Living arrangements: with family Spiritual care concerns: No Anes - Eval Final PreProcedure Day of Procedure 02/17/25 07:07 Patient weight: normal Heart: regular rate and rhythm Lungs: decreased breath sounds Airway: Mallampati scale class II Neurological: alert and oriented Last oral intake: >/= 8 hours ASA classification: II Emergent: no Anesthetic plan: proceed Anesthesia type and monitoring: general ETT and standard monitoring Results Review: All pre-operative results and documents have been reviewed as part of the pre-operative evaluation. Informed Consent: The patient's anesthetic plan and its attendant risks and benefits were discussed with the patient/family/POA. Questions were solicited and answers provided to the satisfaction of the patient/family/POA.
[2025-02-17 07:21] LABS: BEDSIDEPREGUCG Negative (Negative)
--- NOTE | 2025-02-17 08:04 | S_PTH ---
PATIENT: Kennedy Santos LOC: [facility] U#:[id number] AGE/SX: 35/F ROOM: RE02/17/[address]: Abdifatah Egan MD : 1990 BED: DIS: 02/17/2025 SPEC #: [id number] RECD: 02/17/25 09:49 STATUS: AURELIO REQ #: [id number] RAFA: 02/17/25 08:[address]: Abdifatah Dominguez DEPT: [facility] Surgical RECD BY: Tami Holley ENTERED: 02/17/25 09:49 SP TYPE: Surgical OTHR DR: Isidro Connolly M.D. Tissues: A - Fallopian Tube Bilateral Procedures: Gross and Microscopic Level 2 Hematoxylin and Eosin Stain
--- NOTE | 2025-02-17 08:07 | P.OP_ITS ---
Procedure Note - Detailed Date of Procedure 02/17/25 Pre-op Diagnosis desires sterilization/skin Post-op Diagnosis Same Procedure Performed Laparoscopic bilateral salpingectomy and left groin skin tag removal Surgeon Abdifatah Egan MD Anesthesia General Indications 35-year-old multiparous female desires permanent sterilization/ skin tag Findings Normal-appearing uterus ovaries tubes Description of Procedure The patient was prepped draped in the sterile fashion placed in dorsal position. Excellent endotracheal anesthesia weighted speculum was placed in posterior fornix of vagina. Anterior lip of the cervix grasped with a single-tooth tenaculum. Perez's cannula inserted through the cervix and attached to the single-tooth to be used later for uterine manipulation. Bladder was emptied of clear urine. The weighted speculum was. Gloves were changed. An infraumbilical incision made Veress needle passed into the abdomen. The abdomen filled [id number]. 5mm trocar advanced with the Optiview assuring no injury. Patient then placed in 18? Trendelenburg. A suprapubic incision was made in the 5mm trocar advanced under direct visualization assuring no injury. Patient placed in Trendelenburg and a left lower quadrant incision made. The 5mm trocar advanced under direct visualization again assuring no injury. The left fallopian tube was grasped and using the 5mm LigaSure serially clamped burn ed and cut and from the ovarian complex until reaching the origin at the uterus. This was then clamped burned and cut and removed through the left lower quadrant. In similar fashion on the right fallopian tube was grasped anteriorly with sharp dissection using the LigaSure was clamped burned and cut until reaching the origin of right fallopian tube. This was then crossclamped cut and passed off the table. Hemostasis was assured and no other abnormality seen. The gas removed from the abdomen. Trocars removed and the incisions closed with 4-0 Monocryl and glue. Next the 5 mm LigaSure was placed across a large skin tag which was very benign in nature in the left groin. Was clamped burned and cut. No suture was necessary as there was no bleeding. The patient was awakened went to recovery in satisfactory condition. All sponge, needle, instrument counts were correct. There were no immediate complications Estimated Blood Loss 5 Drains No Packing No Pathology Yes Complications No immediate complications Condition Stable Disposition PACU
[2025-02-17] MEDS: LACTATED RINGERS 1,000 ML 30 ML IV CONT (08:15)
== END 2025-02-17 10:08 | disposition home or self-care (01) ==
PROVIDERS: PCP Family Medicine; Visit Provider Obstetrics & Gynecology
PROC: (CPT 49320; principal; 2025-02-17 07:30)
PROC: (CPT 58661; 2025-02-17 07:30)
DX: Z30.2 Encounter for sterilization (principal); L91.8 Other hypertrophic disorders of the skin; F17.210 Nicotine dependence, cigarettes, uncomplicated; F17.290 Nicotine dependence, other tobacco product, uncomplicated
CPT/HCPCS: 58661; 11200; 88302; A9270; J1100; J1885; J2250; J2270; J2405; J2704; J7030; J7120